=== PATIENT | female | born 1990 | race Caucasian/White ===

== ENCOUNTER 2017-02-18 16:59 | Emergency (ER) | payer BC, OTHER ==
[2017-02-18 17:14] VITALS: TEMP 97.7
--- NOTE | 2017-02-18 17:51 | ED.PDOC ---
History of Present Illness - General Chief Complaint: Lower Extremity Injury Stated Complaint: left knee pain Time Seen by Provider: 02/18/17 17:42 Source: patient Exam Limitations: no limitations - History of Present Illness Initial Comments: Patient presents with left knee pain for one week. It began insidiously and today she could no longer stand it. Aching and sharp in nature, located superior to the patella at the superior patellar tendon, no radiation, worse with movement and walking, better with rest. No previous episodes nor trauma to the area. No other complaints. Timing/Duration: 1 week Severity: moderate Improving Factors: rest Worsening Factors: movement Associated Symptoms: denies symptoms Allergies/Adverse Reactions: Allergies NO KNOWN ALLERGY Allergy (Unverified 04/27/15 23:36) Home Medications: Ambulatory Orders NK [NK] 02/18/17 Review of Systems - Review of Systems Constitutional: States: no symptoms reported Respiratory: States: no symptoms reported Cardiology: States: no symptoms reported Gastrointestinal/Abdominal: States: no symptoms reported Genitourinary: States: no symptoms reported Musculoskeletal: States: see HPI Skin: States: no symptoms reported Neurological: States: no symptoms reported Endocrine: States: no symptoms reported Hematologic/Lymphatic: States: no symptoms reported Past Medical History (General) - Patient Medical History Hx Asthma: No Hx Congestive Heart Failure: No Hx Diabetes: No Hx Renal Disease: No Surgical History: no surgical history - Vaccination History Hx Influenza Vaccination: Yes - Social History Hx Tobacco Use: No Hx Substance Use: No - Female History Patient is a Female of Child Bearing Age (10 -59 yrs old): Yes Hx Last Menstrual Period: 10/13/14 Expected Date of Delivery:: 07/20/15 Family Medical History - Family History Father Age (years): 50 Living Status: Still Living Hx Family Hypertension: Yes Maternal Grandparents Age (years): 79 Living Status: Still Living Hx Family Cancer: Yes Physical Exam - Physical Exam General Appearance: Alert Respiratory: lungs clear Cardiovascular/Chest: normal peripheral pulses, regular rate, rhythm Gastrointestinal/Abdominal: normal bowel sounds, non tender, soft Extremity: other - Varus and valgus tests of the left knee are negative. Minerva's negative. Superior patellar tendon is TTP. PROM of the patella elicits pain superior to the patella. No tibial tuberosity tenderness. Departure - Departure Clinical Impression: Patellar tendinitis of left knee Disposition: Discharge to Home or Self Care Condition: Good Departure Forms: ED Discharge - Pt. Copy, Patient Portal Self Enrollment Diet: other - as per your regular doctor Activity: increase activity as tolerated Referrals: Sabiha Jimenez NP [Primary Care Provider] - 1-2 Weeks Home Medications: Ambulatory Orders NK [NK] 02/18/17 Additional Instructions: Take ibuprofen as directed. You may take up to 800 milligrams at one time but not more than three times per day. Massage the painful area in the evening. Wear JUSTINE wrap or Neoprene brace. If you feel significant pain, stop and rest. Follow up with your primary care physician in two weeks. You may use ice for pain if it helps.
[2017-02-18 18:10] VITALS: BP 114/74; O2SAT 96
== END 2017-02-18 18:10 | disposition home or self-care (01) ==
LOC: ER 16:59
DX: M76.52 Patellar tendinitis, left knee (principal)

== ENCOUNTER → 2020-04-20 | Outpatient (CLI) | payer BC ==
--- NOTE | 2020-04-20 10:03 | RAD ---
EXAM DESCRIPTION: Knee,Left Complete CLINICAL HISTORY: 29 years Female, PAIN IN LEFT KNEE COMPARISON: None. Findings: Four views/radiographs Location: Left knee No acute fracture or dislocation. Mild lateral compartment narrowing. Tricompartmental osteophytes. Lateral patellofemoral narrowing. Lateral patellar subluxation. No significant joint effusion. IMPRESSION: Left knee osteoarthritis. No acute osseous abnormality. Electronically signed by: Garrick Catherine MD 04/20/2020 10:01 AM CDT
--- NOTE | 2020-04-20 10:04 | RAD ---
Single frontal radiograph pelvis Indication: PAIN IN LEFT HIP Comparison: None. Impression: Mild bilateral hip joint space narrowing without subchondral sclerosis or cystic change. No acute fracture or malalignment. Millimetric ossification suspected at the distal left iliopsoas tendon insertion. Electronically signed by: Yogesh Mello MD 04/20/2020 10:02 AM CDT
== END ==
LOC: RAD 08:03
PROVIDERS: ATTEND Orthopaedic Surgery
DX: M25.851 Other specified joint disorders, right hip (principal); M25.852 Other specified joint disorders, left hip; M89.9 Disorder of bone, unspecified; M17.12 Unilateral primary osteoarthritis, left knee